=== PATIENT | male | born 1985 | race American Indian/Alaskan Native ===

== ENCOUNTER 2016-06-18 11:25 | Emergency (ER) | payer OTHER ==
[2016-06-18] MEDS ORDERED: NACL 0.9% IR ONE (12:43)
[2016-06-18] MEDS ORDERED: NORCO 10/325 PO ONE (13:26)
[2016-06-18] MEDS ORDERED: XYLOCAINE 1% 20 mL INFILTRATI ONE (14:19)
--- NOTE | 2016-06-18 15:10 | XRay Report ---
FINAL REPORT PROCEDURE: XR FOREARM 1V LT TECHNIQUE: AP view of the left forearm is submitted. HISTORY: laceration looking for glass COMPARISON: None FINDINGS: On this limited exam there is no evident radiopaque foreign body. No fracture, blastic or lytic lesion is seen. IMPRESSION: No radiopaque foreign body. No fracture.
--- NOTE | 2016-06-18 15:11 | XRay Report ---
FINAL REPORT PROCEDURE: XR FOREARM 1V RT TECHNIQUE: AP view HISTORY: laceration looking for miguel angel COMPARISON: None FINDINGS: On this limited examination there is no evident radiopaque foreign body. There is no fracture, blastic or lytic lesion. IMPRESSION: No radiopaque foreign body or fracture.
--- NOTE | 2016-06-18 15:13 | XRay Report ---
FINAL REPORT PROCEDURE: XR SHOULDER 2 RT TECHNIQUE: AP views in internal and external rotation and Y-view of the right shoulder are submitted. HISTORY: laceration of wound COMPARISON: None FINDINGS: There is no evident fracture or dislocation. There is no blastic or lytic lesion. Joint spaces are largely maintained. There is no intra-articular loose body or radiopaque foreign body. IMPRESSION: Unremarkable exam
--- NOTE | 2016-06-18 15:36 | Emergency Department Report ---
- General Chief Complaint: Fall Stated Complaint: FALL/RT/LFT ARM LAC Time Seen by Provider: 06/18/16 13:21 Source: patient Mode of arrival: Ambulatory Limitations: No Limitations - History of Present Illness Initial Comments: Patient is a 30-year-old male who presents to ED completely normal laceration to the left and right arm times today. Patient states he was walking down the stairs when he tripped and fell into a glass door. Patient states episode happened earlier today. Patient complains of right shoulder pain and pain at laceration sites. Patient denies fever, loss of sensation, loss of consciousness, injury to the head or chest headaches, shortness of breath, problems - Related Data Previous Rx's Medication Instructions Recorded Last Taken Type Acetaminophen/Codeine [Tylenol #3] 1 tab PO Q4HR PRN #14 tablet 06/18/16 Unknown Rx Cephalexin [Keflex] 500 mg PO BID #10 capsule 06/18/16 Unknown Rx Allergies Allergy/AdvReac Type Severity Reaction Status Date / Time No Known Allergies Allergy Verified 06/18/16 13:23 ED Review of Systems ROS: Stated complaint: FALL/RT/LFT ARM LAC Other details as noted in HPI Constitutional: denies: chills, fever Eyes: denies: eye pain, eye discharge, vision change ENT: denies: ear pain, throat pain, dental pain, hearing loss, epistaxis, congestion Respiratory: denies: cough, shortness of breath, wheezing Cardiovascular: denies: chest pain, palpitations Endocrine: no symptoms reported Gastrointestinal: denies: abdominal pain, nausea, diarrhea Genitourinary: denies: urgency, dysuria Musculoskeletal: denies: back pain, joint swelling, arthralgia Skin: denies: rash, lesions Neurological: denies: headache, weakness, numbness, paresthesias, confusion Psychiatric: denies: anxiety, depression Hematological/Lymphatic: denies: easy bleeding, easy bruising ED Past Medical Hx - Past Medical History Hx Asthma: Yes - Surgical History Past Surgical History?: No - Social History Smoking Status: Current Every Day Smoker Substance Use Type: None - Medications Home Medications: Home Medications Medication Instructions Recorded Confirmed Last Taken Type Acetaminophen/Codeine [Tylenol #3] 1 tab PO Q4HR PRN #14 tablet 06/18/16 Unknown Rx Cephalexin [Keflex] 500 mg PO BID #10 capsule 06/18/16 Unknown Rx ED Physical Exam - General Limitations: No Limitations General appearance: alert, in no apparent distress - Head Head exam: Present: atraumatic, normocephalic - Eye Eye exam: Present: normal appearance, PERRL, EOMI - ENT ENT exam: Present: normal exam, mucous membranes moist - Neck Neck exam: Present: normal inspection, full ROM. Absent: tenderness, lymphadenopathy - Respiratory Respiratory exam: Present: normal lung sounds bilaterally. Absent: respiratory distress, wheezes, rales, rhonchi, stridor - Cardiovascular Cardiovascular Exam: Present: regular rate, normal rhythm. Absent: systolic murmur, diastolic murmur, rubs, gallop - GI/Abdominal GI/Abdominal exam: Present: soft, normal bowel sounds. Absent: distended, tenderness, guarding, rebound, rigid - Rectal Rectal exam: Present: deferred - Extremities Exam Extremities exam: Present: normal inspection, full ROM, normal capillary refill. Absent: tenderness - Back Exam Back exam: Present: normal inspection, full ROM. Absent: tenderness, CVA tenderness (R), CVA tenderness (L), paraspinal tenderness - Neurological Exam Neurological exam: Present: alert, oriented X3, CN II-XII intact, reflexes normal - Psychiatric Psychiatric exam: Present: normal affect, normal mood - Skin Skin exam: Present: warm, dry, intact, normal color, other (multiple lacerations to the right forearm and left arm). Absent: rash ED Course Vital Signs 06/18/16 06/18/16 11:39 17:56 Temperature 98.9 F 98.2 F Pulse Rate 92 H 88 Respiratory 20 16 Rate Blood Pressure 148/93 Blood Pressure 125/87 [Right] O2 Sat by Pulse 97 100 Oximetry - Laceration /Wound Repair Right Upper Anterior Proximal Arm Wound's Depth, Shape: superficial, linear Wound Explored: no foreign body removed Irrigated w/ Saline (ccs): 500 Betadine Prep?: Yes Anesthesia: 1% Lidocaine Volume Anesthetic (ccs): 5 Wound Repaired With: sutures Suture Size/Type: 4:0, proline Number of Sutures: 10 Layer Closure?: No Sterile Dressing Applied?: Yes Left Upper Posterior Proximal Arm Wound Location: upper extremity Wound's Depth, Shape: superficial, linear Wound Explored: no foreign body removed Irrigated w/ Saline (ccs): 200 Betadine Prep?: Yes Anesthesia: 1% Lidocaine Volume Anesthetic (ccs): 5 Wound Repaired With: sutures Suture Size/Type: 4:0 Number of Sutures: 6 Layer Closure?: No Sterile Dressing Applied?: Yes ED Medical Decision Making - Medical Decision Making 30-year-old male presents with multiple laceration. ED course: Patient received 1 tablet of 10/325Norco. X-ray of shoulder right shoulder shows no dislocation or fractures or acute injury. X-ray of forearms showed no foreign object, no dislocation, no fractures. Right Arm: The wound was prepped and draped in sterile fashion. Anesthesia was achieved with 5mL of 1% lidocaine. The wound was irrigated with 500cc NS and explored. There were no foreign bodies The wound was reapproximated in 1 layer suing with 4-0 monofilament sutures in the dermis with four matress sutures and 6 interrupted sutures percutaneously. There was excellent reapproximation of the wound edges. The patient tolerated the procedure without complication. Left arm: The wound was prepped and draped in sterile fashion. Anesthesia was achieved with 5mL of 1% lidocaine. The wound was irrigated with 200cc NS and explored. There were no foreign bodies The wound was reapproximated in 1 layer suing with 4-0 monofilament sutures in the dermis with six interrupted sutures percutaneously. There was excellent reapproximation of the wound edges. The patient tolerated the procedure without complication. Discussed the patient to return in 8-10 days suture removal. Discussed with patient to follow instructions given suture care. Critical care attestation.: If time is entered above; I have spent that time in minutes in the direct care of this critically ill patient, excluding procedure time. ED Disposition Clinical Impression: Multiple abrasions, Laceration of multiple sites Laceration of arm Qualifiers: Encounter type: initial encounter Laterality: right Qualified Code(s): S41.111A - Laceration without foreign body of right upper arm, initial encounter Disposition: DISCHARGED TO HOME OR SELFCARE Is pt being admited?: No Does the pt Need Aspirin: No Condition: Stable Instructions: Suture Care (ED), Laceration (ED), Suture Removal (ED) Additional Instructions: Get stitches removed between 8-10 days. Take medication as prescribed Keep wound clean as discussed Prescriptions: Acetaminophen/Codeine [Tylenol #3] 1 tab PO Q4HR PRN #14 tablet PRN Reason: Pain Cephalexin [Keflex] 500 mg PO BID #10 capsule Referrals: PRIMARY CARE, [Primary Care Provider] - 3-5 Days Forms: Accompanied Note, Work/School Release Form(ED) Time of Disposition: 17:39
[2016-06-18] MEDS ORDERED: TRIPLE ANTIBIOTIC TP ONE (17:06)
[2016-06-18 17:58] VITALS: BP 125/87
== END 2016-06-18 17:56 | disposition home or self-care (01) ==
LOC: ED 11:25
DX: S41.112A Laceration without foreign body of left upper arm, initial encounter (principal); S41.111A Laceration without foreign body of right upper arm, initial encounter; T14.90 Injury, unspecified; F17.200 Nicotine dependence, unspecified, uncomplicated; W01.0XXA Fall on same level from slipping, tripping and stumbling without subsequent striking against object, initial encounter; Y93.9 Activity, unspecified; Y92.9 Unspecified place or not applicable; Y99.9 Unspecified external cause status
CPT/HCPCS: 99283

== ENCOUNTER 2016-06-29 10:10 | Emergency (ER) | payer SELFPAY ==
[2016-06-29 10:26] VITALS: BP 126/84
--- NOTE | 2016-06-29 10:34 | Emergency Department Report ---
Suture/Staple Removal - HPI Chief Complaint: Laceration/Recheck/Suture Stated Complaint: BOTH ARMS STITCHES REMOVAL Time Seen by Provider: 06/29/16 10:28 Wound Location: left arm dorsal side of the forearm, right arm plantar side forearm ED Review of Systems ROS: Stated complaint: BOTH ARMS STITCHES REMOVAL Other details as noted in HPI Comment: All other systems reviewed and negative ED Past Medical Hx - Past Medical History Previous Medical History?: Yes Hx Asthma: Yes - Surgical History Past Surgical History?: No - Social History Smoking Status: Current Every Day Smoker Substance Use Type: None - Medications Home Medications: Home Medications Medication Instructions Recorded Confirmed Last Taken Type Acetaminophen/Codeine [Tylenol #3] 1 tab PO Q4HR PRN #14 tablet 06/18/16 Unknown Rx Cephalexin [Keflex] 500 mg PO BID #10 capsule 06/18/16 Unknown Rx Suture Removal Exam - Exam General: Vital signs noted. No distress. Alert and acting appropriately. Wound: No Pathologic Erythema, No Tenderness, No Drainage, No Pus, No Wound Dehiscence Other Systems: All other systems reviewed and are unremarkable. ED Course Vital Signs 06/29/16 10:23 Temperature 98.6 F Pulse Rate 52 L Respiratory 18 Rate Blood Pressure 126/84 O2 Sat by Pulse 100 Oximetry ED Recheck MDM - Medical Decision Making Suture removal but total of 14 stitches from both arms. Discussed with patient that he needed to keep the area clean dry and apply triple antibiotic or vitamin E. Patient verbalized understanding Critical care attestation.: If time is entered above; I have spent that time in minutes in the direct care of this critically ill patient, excluding procedure time. ED Disposition Clinical Impression: Visit for suture removal Disposition: DISCHARGED TO HOME OR SELFCARE Is pt being admited?: No Does the pt Need Aspirin: No Condition: Stable Instructions: Suture Removal (ED) Additional Instructions: Keep the area clean and dry apply vitamin E or triple antibiotic at least daily keep the area moist. Forms: Work/School Release Form(ED)
== END 2016-06-29 12:21 | disposition home or self-care (01) ==
LOC: ED 10:10
DX: Z48.02 Encounter for removal of sutures (principal); J45.909 Unspecified asthma, uncomplicated; F17.200 Nicotine dependence, unspecified, uncomplicated